=== PATIENT | male | born 1975 | race American Indian/Alaskan Native ===

== ENCOUNTER 2018-07-20 09:57 | Emergency (ER) | payer SELFPAY ==
--- NOTE | 2018-07-20 10:33 | Emergency Department Report ---
Eye Injury/Foreign Body - HPI Duration: 2 Days Eye Location: Right Severity: Moderate Eye Symptoms: Eye Pain: Yes, Blurred Vision: No, Eye Redness: Yes, Grinding/Hammering Metal: Yes (patient is a library circulation technician and he feels as though something got in his right eye several days ago. Patient used eye wash however patient is now having intense pain whenever light shines in his R eye), Contact Lens Use: No, Recalls Injury: Yes, Photophobia: Yes ED Review of Systems ROS: Stated complaint: RT EYE PAIN Other details as noted in HPI Comment: All other systems reviewed and negative ED Past Medical Hx - Social History Smoking Status: Never Smoker Substance Use Type: None - Medications Home Medications: Home Medications Medication Instructions Recorded Confirmed Last Taken Type Gentamicin 0.3% Ophth Soln 2 drops OP Q4H #1 bottle 07/20/18 Unknown Rx HYDROcodone/ACETAMINOPHEN 1 each PO Q6HR PRN #12 tablet 07/20/18 Unknown Rx [Hydrocodone-Acetamin 5-325 mg] Homatropine HBr 5% [Isopto 1 drops OD BID 3 Days #1 bottle 07/20/18 Unknown Rx Homatropine] Naphazoline HCl/Pheniramine 2 drop OD QID #1 bottle 07/20/18 Unknown Rx [Naphcon-A Eye Drops] Eye Injury Exam - Exam General: Vital signs noted. No distress. Alert and acting appropriately. Patient has right conjunctival injection. There is obvious corneal abrasion without staining. There is no metal rust rings present per my limited exam. Patient does have a consensual light reflex is painful in the right eye. there is no hyphema present ED Course Vital Signs 07/20/18 10:04 Temperature 97.5 F L Pulse Rate 91 H Respiratory 16 Rate Blood Pressure 131/69 Blood Pressure 131/69 [Right] O2 Sat by Pulse 97 Oximetry Critical care attestation.: If time is entered above; I have spent that time in minutes in the direct care of this critically ill patient, excluding procedure time. ED Disposition Clinical Impression: Iritis Cornea abrasion Qualifiers: Encounter type: initial encounter Laterality: right Qualified Code(s): S05.01XA - Injury of conjunctiva and corneal abrasion without foreign body, right eye, initial encounter Disposition: TO HOME OR SELFCARE Is pt being admited?: No Does the pt Need Aspirin: No Condition: Stable Instructions: Iritis (ED), Corneal Abrasion (ED) Time of Disposition: 10:33
== END 2018-07-20 11:06 | disposition home or self-care (01) ==
LOC: ED 09:57
CPT/HCPCS: 99282

== ENCOUNTER 2021-02-17 17:33 | Emergency (ER) | payer SELFPAY ==
[2021-02-17 18:15] VITALS: BP 119/77
[2021-02-17] MEDS ORDERED: HYDROcodone/ACETAMINOPHEN 5-325 MG TAB PO STA (19:49)
--- NOTE | 2021-02-17 20:10 | XRay Report ---
LEFT HIP 2 VIEWS INDICATION: HIP PAIN FALL FROM 10 FT. COMPARISON: None. IMPRESSION: No acute osseous or soft tissue abnormality. No significant DJD. Signer Name: Umang De La Rosa Jr, MD Signed: 02/17/2021 8:06 PM Workstation Name: [id number]
--- NOTE | 2021-02-17 20:22 | Emergency Department Report ---
ED Lower Extremity HPI - General Chief Complaint: Fall Stated Complaint: LT HIP PAIN Time Seen by Provider: 02/17/21 18:35 Source: patient Mode of arrival: Ambulatory Limitations: No Limitations - History of Present Illness Initial Comments: 45-year-old malE reports being up 10 feet high when he fell down landing on his left hip about 3 days ago and reports having continued dull throbbing goes to worsening pain since the onset of the pain is going every day he tries to walk and ambulate so he was concerned and wanted to have it checked out to make sure he did not break the area he reports no lower extremity swelling, no numbness or tingling, no loss of bowel bladder no saddle paresthesia. No pre-existing injuries to his hip or joints to his knowledge MD Complaint: hip injury -: Gradual Type of Injury: blunt Place: home Severity: moderate Context: fall Associated Symptoms: ambulatory - Related Data Previous Rx's Medication Instructions Recorded Last Taken Type Ketorolac [Toradol] 10 mg PO Q6H PRN #14 tablet 02/17/21 Unknown Rx Allergies Allergy/AdvReac Type Severity Reaction Status Date / Time No Known Allergies Allergy Verified 02/17/21 18:14 ED Review of Systems ROS: Stated complaint: LT HIP PAIN Other details as noted in HPI Comment: All other systems reviewed and negative ED Past Medical Hx - Social History Smoking Status: Current Some Day Smoker Substance Use Type: None - Medications Home Medications: Home Medications Medication Instructions Recorded Confirmed Last Taken Type Ketorolac [Toradol] 10 mg PO Q6H PRN #14 tablet 02/17/21 Unknown Rx ED Physical Exam - General Limitations: No Limitations General appearance: alert, in no apparent distress - Head Head exam: Present: atraumatic, normocephalic - Eye Eye exam: Present: normal appearance - ENT ENT exam: Present: mucous membranes moist - Neck Neck exam: Present: normal inspection - Respiratory Respiratory exam: Present: normal lung sounds bilaterally. Absent: respiratory distress - Cardiovascular Cardiovascular Exam: Present: regular rate, normal rhythm. Absent: systolic murmur, diastolic murmur, rubs, gallop - GI/Abdominal GI/Abdominal exam: Present: soft, normal bowel sounds - Rectal Rectal exam: Present: deferred - Extremities Exam Extremities exam: Present: normal inspection, tenderness - Expanded Lower Extremity Exam Left Hip exam: Present: tenderness (In the area of the greater trochanter although there is no bruising no swelling. Full active motion is noted.) Upper Leg exam: Present: normal inspection Knee exam: Present: normal inspection, full ROM. Absent: swelling, laceration, pain w/ pronation/supination, pain/laxity with varus Lower Leg exam: Present: normal inspection, full ROM. Absent: abrasion Foot/Toe exam: Absent: tenderness, laceration, ecchymosis, erythema, amputation, puncture wound, calcaneal tenderness - Back Exam Back exam: Present: normal inspection - Neurological Exam Neurological exam: Present: alert, oriented X3 - Psychiatric Psychiatric exam: Present: normal affect, normal mood - Skin Skin exam: Present: warm, dry, intact, normal color. Absent: rash ED Course Vital Signs 02/17/21 02/17/21 18:14 18:24 Temperature 98.4 F Pulse Rate 93 H Respiratory 16 Rate Blood Pressure 119/77 [Right] O2 Sat by Pulse 99 99 Oximetry ED Lower Extremity MDM - Radiology Data Radiology results: report reviewed [facility] [address] [place] [address] XRay Report Signed Patient: AAKSH KHALIL MR#: [id number] : 1975 Acct:[id number] Age/Sex: 45 / M ADM Date: 02/17/21 Loc: ED Attending Dr: Ordering Physician: GEORGES DEWITT Date of Service: 02/17/21 Procedure(s): XR hip 2-3V LT Accession Number(s): [id number] cc: GEORGES DEWITT Fluoro Time In Minutes: LEFT HIP 2 VIEWS INDICATION: HIP PAIN FALL FROM 10 FT. COMPARISON: None. IMPRESSION: No acute osseous or soft tissue abnormality. No significant DJD. Signer Name: Umang De La Rosa Jr, MD Signed: 02/17/2021 8:06 PM Workstation Name: [id number] Transcribed By: TTR Dictated By: UMANG DE LA ROSA JR, MD Electronically Authenticated By: UMANG DE LA ROSA JR, MD Signed Date/Time: 02/17/212005 DD/ 05 TD/TT: Critical care attestation.: If time is entered above; I have spent that time in minutes in the direct care of this critically ill patient, excluding procedure time. ED Disposition Clinical Impression: Contusion, hip Disposition: 01 HOME / SELF CARE / HOMELESS Is pt being admited?: No Does the pt Need Aspirin: No Condition: Stable Instructions: How to Use Cold Therapy, [id number], How to Use Cold Therapy, Contusion Prescriptions: Ketorolac [Toradol] 10 mg PO Q6H PRN #14 tablet PRN Reason: Pain Referrals: [facility] [Provider Group] - 3-5 Days BARBARA MENDEZ MD [Staff Physician] - 3-5 Days
== END 2021-02-17 20:39 | disposition home or self-care (01) ==
LOC: ED 17:33
DX: S70.02XA Contusion of left hip, initial encounter (principal); F17.200 Nicotine dependence, unspecified, uncomplicated; W17.89XA Other fall from one level to another, initial encounter; Y93.89 Activity, other specified; Y92.89 Other specified places as the place of occurrence of the external cause; Y99.8 Other external cause status
CPT/HCPCS: 99283

== ENCOUNTER 2021-09-18 14:29 | Emergency (ER) | payer SELFPAY ==
[2021-09-18 16:42] VITALS: BP 129/86
== END 2021-09-18 20:23 | disposition left against medical advice (07) ==
LOC: ED 14:29
DX: M25.552 Pain in left hip (principal); Z53.21 Procedure and treatment not carried out due to patient leaving prior to being seen by health care provider